=== PATIENT | male | born 1995 | race American Indian/Alaskan Native ===

== ENCOUNTER 2021-04-25 18:58 | Emergency (ER) | payer OTHER ==
[~2021-04-25] VITALS: Ht 175.3 cm; Wt 58.1 kg
[2021-04-25 19:17] VITALS: BP 126/78
--- NOTE | 2021-04-25 19:17 | NUR ---
TO BED AMBULATORY
--- NOTE | 2021-04-25 19:20 | NUR ---
PATIENT 26 Y/O MALE BIB SELF FOR C/O EPIGASTRIC PAIN SINCE 4 PM TODAY. PATIENT DENIES N/V/D. PATIENT STATES HAS CHRONIC EPIGASTRIC PAIN THAT COMES AND GOES X 1 YEAR AFTER EATING OR DRINKING. BS PRESENT X 4 QUADRANTS, NO TENDERNESS UPON PALPATION. PATIENT STATES OTC MEDICATION ARE INEFFECTIVE. MEDHX: DENIES NKA
[2021-04-25] MEDS ORDERED: DICYCLOMINE HCL LIQUID 20 MG, ALUMINUM HYD/MAG/SIMETHICONE 30 ML, LIDOCAINE VISCOUS 2% ... PO ONE ×3 (19:25)
[2021-04-25] MEDS ORDERED: ALUMINUM HYD/MAG/SIMETHICONE 30 ML UDC ONE (19:31)
[2021-04-25] MEDS ORDERED: LIDOCAINE VISCOUS 2% 20 ML UDC ONE (19:31)
[2021-04-25] MEDS ORDERED: DICYCLOMINE HCL LIQUID 10 MG/5 ML UDC ONE (19:31)
--- NOTE | 2021-04-25 19:40 | NUR ---
ERMD AT BEDSIDE FOR MEDICAL EVALUATION.
[2021-04-25] MEDS ORDERED: OMEP40EC24 PO ×2 (19:48→20:01)
[2021-04-25 20:00] VITALS: BP 126/78
--- NOTE | 2021-04-25 20:00 | NUR ---
Patient discharged with v/s stable. Written and verbal after care instructions given and explained. Patient alert, oriented and verbalized understanding of instructions. Ambulatory with steady gait. All questions addressed prior to discharge. ID band removed. Patient advised to follow up with PMD. Rx of OMEPRAZOLE given. Patient educated on indication of medication including possible reaction and side effects. Opportunity to ask questions provided and answered.
== END 2021-04-25 20:00 | disposition home or self-care (01) ==
LOC: MED 18:58
DX: R10.13 Epigastric pain (principal)
CPT/HCPCS: 99283

== ENCOUNTER 2021-11-01 11:41 | Emergency (ER) | payer OTHER ==
[~2021-11-01] VITALS: Ht 175.3 cm; Wt 56.2 kg
[~2021-11-01 11:41] MED LIST: OMEP40EC24 PO
[2021-11-01 11:53] VITALS: BP 141/98
--- NOTE | 2021-11-01 11:57 | NUR ---
PATIENT AMBULATED TO BED 5
--- NOTE | 2021-11-01 12:01 | NUR ---
26/M BIB SELF WITH C/O BACK PAIN. PATIENT STATES ON THURSDAY HE WAS STRETCHING, STATES "I THINK I PULLED A MUSCLE" DENIES RECENT INJURY OR TRAUMA. PATIENT REPORTS USING BIOFREEZE, LIDOCAINE PATCHES AND ALEVE WITH MILD RELIEF BUT STATES PAIN HAS BEEN CONTINUING. DENIES CP, SOB.
[2021-11-01] MEDS ORDERED: methocarbamoL 500 MG TAB PO ONE (12:10)
[2021-11-01] MEDS ORDERED: METH-1681 PO (12:31)
[2021-11-01] MEDS ORDERED: LIDO120C3 TP (12:31)
[2021-11-01 12:44] VITALS: BP 118/72
--- NOTE | 2021-11-01 12:44 | NUR ---
Patient discharged with v/s stable. Written and verbal after care instructions given and explained. Patient alert, oriented and verbalized understanding of instructions. Ambulatory with steady gait. All questions addressed prior to discharge. ID band removed. Patient advised to follow up with PMD. Rx of [id number] CREAM, ROBAXIN given. Patient educated on indication of medication including possible reaction and side effects. Opportunity to ask questions provided and answered.
== END 2021-11-01 12:44 | disposition home or self-care (01) ==
LOC: MED 11:41
DX: S46.011A Strain of muscle(s) and tendon(s) of the rotator cuff of right shoulder, initial encounter (principal); X58.XXXA Exposure to other specified factors, initial encounter; Y93.89 Activity, other specified; Y92.89 Other specified places as the place of occurrence of the external cause; Y99.8 Other external cause status
CPT/HCPCS: 99283